=== PATIENT | male | born 1995 | race Caucasian/White ===

== ENCOUNTER 2018-04-19 09:55 | Day surgery (SDC) | payer BC ==
[2018-04-19] MEDS ORDERED: LIDOCAINE 2% MDV (20MG/ML) 20ML VIAL IV ONE (09:56)
[2018-04-19] MEDS ORDERED: PROPOFOL 10 MG/ML VIAL IV ONE (09:56)
--- NOTE | 2018-04-20 12:11 | Operative Note ---
DATE OF SURGERY: 04/19/2018 OPERATION: ESOPHAGOGASTRODUODENOSCOPY with biopsy. INDICATION: Recurring episodes of vomiting. The patient states that he is clinically improved over the past month after starting on Dexilant once daily. He denies use of anti-inflammatory drugs. He had laboratory which was fairly unremarkable. Ultrasound of the abdomen was completed this morning but results area pending. Upper endoscopy is performed at this time for further evaluation but again, he is clinically improved. His weight has been stable and his appetite is okay. ANESTHESIA: Intravenous sedation was administered by the department of anesthesiology and included Diprivan titrated to effect. PROCEDURE: Following informed consent from this alert individual, including a discussion of the risks and benefits of the procedure and an opportunity for the patient to ask questions, the patient was in the left lateral decubitus position. The Olympus [id number] video endoscope was inserted into the esophagus without resistance. The proximal esophagus had a normal appearance with normal folds and distensibility. The mid and distal esophagus likewise was free from changes. The squamocolumnar junction was fairly smooth and well defined. There was some minimal erythema noted at the GE junction. The stomach was entered and found to be completely normal with some mild thickening of a fold in the prepyloric antrum. No ulcerations or erosions were seen. There was no gastritis apparent. Biopsies from the stomach were obtained to assess for Helicobacter pylori and check histology. The pylorus itself was symmetrical and patent. The duodenal bulb, sweep and descending duodenum were examined in a serial fashion and found to be normal. Biopsies from the duodenum were obtained to rule out the remote possibility of a celiac disease or other pathology. The endoscope was then withdrawn back into the body of the stomach where retroflexion accomplished following air insufflation failed to demonstrate any changes. The endoscope was straightened and withdrawn back through a normal esophagus and removed from the patient. The patient tolerated the procedure well and was returned to the recovery area in stable condition. IMPRESSION: Essentially unremarkable esophagogastroduodenoscopy with some minimal erythema at the GE junction and some mild thickening of a prepyloric fold. Again, no ulcerations or erosions were seen throughout. Biopsies were taken from the duodenum and stomach. RECOMMENDATION: The patient clinically is improved. He can try to wean off the Dexilant to see how he does. I will discuss possible causes for his nausea and vomiting when he wakes up. He could have had a postinfectious gastroparesis if in fact he had an illness prior to the onset of symptoms. Again, he denied use of anti-inflammatory medications. Further recommendations forthcoming pending biopsy. Followup will be with Dr. Walker. As always, thank you for allowing me to participate in the care of your patient. Addendum After discussion with the patient and his mom, he did reveal that he had some type of an illness in which he called in sick to work prior to or around the time of the onset of symptoms 3 months ago. He now states that he has been taking the Dexilant intermittently, perhaps every other day and is doing well. 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 He can try to wean off the Dexilant if able. If not, he was asked to follow up with me in the clinic. CC: Linda GO
== END 2018-04-19 13:40 | disposition home or self-care (01) ==
LOC: HOP 09:55
PROVIDERS: ATTEND Internal Medicine Gastroenterology
DX: R11.10 Vomiting, unspecified (principal); K21.9 Gastro-esophageal reflux disease without esophagitis
CPT/HCPCS: 76700